=== PATIENT | female | born 1975 | race Two or more races ===

== ENCOUNTER 2018-03-04 23:59 | Emergency (ER) | payer MEDICAID ==
[2018-03-05] MEDS ORDERED: HYDROCODONE/ACETAMINOPHEN 5-325 MG (6 TAB/ER DISP) PO PRN (00:52)
--- NOTE | 2018-03-05 00:53 | ER Document Report ---
ED Neck/Back Problem - General Chief Complaint: Back Pain Stated Complaint: BACK PAIN Time Seen by Provider: 03/05/18 00:23 Mode of Arrival: Ambulatory Information source: Patient Notes: Patient is a 42-year-old morbidly obese female comes in emergency room complaining of low back pain with radiation down both legs. Patient originally states that it started hurting about 2 days ago and started going down the right leg that stopped today and is gone down the left leg. She denies any known trauma no real history of severe back problems and no history of sciatica in the past. She only claims a past medical history pertinent for hypertension she does not smoke and her last period was February 08. She is currently on no medications. Again she denies any falls. She has not lost any urine or stool. And she has no other complaints. TRAVEL OUTSIDE OF THE [place] IN LAST 30 DAYS: No - HPI Patient complains to provider of: Pain, Lower back. No: Injury Onset: This morning Where: Home Onset: Gradual Timing: Constant, Worse, Location changes Quality of pain: Cramping, Sharp Severity: Moderate Pain Level: 3 Recent injury: No Associated symptoms: Radiation to leg, Lower back pain Exacerbated by: Movement of trunk, Sitting position Relieved by: Remaining still Similar symptoms previously: Yes Recently seen / treated by doctor: No Past Medical History - Social History Smoking Status: Unknown if Ever Smoked Lives with: Family Family History: Reviewed & Not Pertinent Patient has suicidal ideation: No Patient has homicidal ideation: No Renal/ Medical History: Denies: Hx Peritoneal Dialysis Review of Systems - Review of Systems Constitutional: No symptoms reported EENT: No symptoms reported Cardiovascular: No symptoms reported Respiratory: No symptoms reported Gastrointestinal: No symptoms reported Genitourinary: No symptoms reported Female Genitourinary: No symptoms reported Musculoskeletal: Back pain, Muscle pain Skin: No symptoms reported Hematologic/Lymphatic: No symptoms reported Neurological/Psychological: No symptoms reported Physical Exam - Vital signs Vitals: Temp Pulse Resp BP Pulse Ox 98.1 F 98 18 179/100 H 96 03/05/18 00:04 03/05/18 00:04 03/05/18 00:04 03/05/18 00:04 03/05/18 00:04 Interpretation: Hypertensive - Notes Notes: Patient is a 42-year-old female who is morbidly obese comes emergency room in no apparent distress but moderate amount of discomfort. - General General appearance: Alert In distress: None - HEENT Head: Normocephalic, Atraumatic Eyes: Normal - Respiratory Respiratory status: No respiratory distress Chest status: Nontender Breath sounds: Normal. No: Productive cough, Rales, Rhonchi, Stridor, Wheezing - Cardiovascular Rhythm: Regular Heart sounds: Normal auscultation Murmur: No - Abdominal Inspection: Normal Distension: No distension Bowel sounds: Normal Tenderness: Nontender Organomegaly: No organomegaly - Back Back: Tender, Vertebra tenderness, Other - Examination of patient's back shows some mildly reproducible tenderness to palpation around L3-L4. She has normal sensation in the general area and two-point discrimination. She has increased discomfort with flexion. As well she has decreased rotation mostly to the right. Patient has normal DTRs bilaterally. She has good vascular exam bilaterally as well. Patient straight leg raises are positive on the left and negative on the right positive meaning about 20 degrees before pain felt on the left and about 5 degrees on the right degrees for her size is good. She displays no sign of saddle paresthesia.. No: Deformity/step-off, CVA tenderness - Extremities General upper extremity: Normal inspection, Nontender, Normal ROM, Normal strength General lower extremity: Normal inspection, Nontender, Normal color, Normal ROM , Normal strength, Normal temperature, Normal weight bearing, Other - All normal with the exception of the positive straight leg raise on the left 27 degrees.. No: Tender, Edema, Robyn's sign - Neurological Neuro grossly intact: Yes Cognition: Normal Orientation: AAOx4 Kyle Coma Scale Eye Opening: Spontaneous Kyle Coma Scale Verbal: Oriented [place] Coma Scale Motor: Obeys Commands Kyle Coma Scale Total: 15 Speech: Normal Course - Re-evaluation Re-evalutation: 03/05/18 02:18 I had a long discussion with patient since she has had no fall recently has no sign of any type of paresthesia on one side or the other and since this kind of shifts back and forth from right to left I figured we would try treating the sciatic "piriformis syndrome. And I have given her the name of the orthopedic doctor air conditioning unit tester and told her to also return to ER if she has any signs of any problems such as loss of urine or stool loss of feeling on one side or the other or any concerns to return here for recheck. - Vital Signs Vital signs: Temp Pulse Resp BP Pulse Ox 98.1 F 88 16 145/98 H 98 03/05/18 01:00 03/05/18 01:00 03/05/18 01:00 03/05/18 01:00 03/05/18 01:00 Discharge - Discharge Clinical Impression: Piriformis syndrome of both sides Sciatica Qualifiers: Laterality: bilateral Qualified Code(s): M54.31 - Sciatica, right side Condition: Stable Disposition: HOME, SELF-CARE Instructions: Ice Packs ([facility]), Low Back Pain ([facility]), Muscle Strain ([facility]), Oral Narcotic Medication ([facility]), Sciatica ([facility]), Warm Packs ([facility]) Additional Instructions: Home and rest. Medications prescribed. As we discussed with no history of any falls x-rays not going to do me a lot of good at this time. I highly suggest that if the medication does not work in the next 3-4 days that you follow-up with your primary care for possible referral to orthopedist or I will give you our orthopedic group air conditioning unit tester you may contact her office to see if they can accommodate you. Should you have any signs or symptoms of stool loss or urine loss or dragging of the foot or any concerns other than we discussed tonight come back to ER for reevaluation. Prescriptions: Cyclobenzaprine HCl [Flexeril 10 mg Tablet] 10 mg PO TIDP PRN #21 tablet PRN Reason: Prednisone 10 mg PO ASDIR PRN 6 Days #1 tab.ds.pk PRN Reason: Forms: Elevated Blood Pressure Referrals: NOMAN QUINONEZ MD [ACTIVE STAFF] - Follow up as needed
[2018-03-05 01:10] VITALS: BP 145/98
== END 2018-03-05 01:07 | disposition home or self-care (01) ==
LOC: ER 23:59
DX: M54.31 Sciatica, right side (principal); M54.32 Sciatica, left side; E66.01 Morbid (severe) obesity due to excess calories
CPT/HCPCS: 99283

== ENCOUNTER 2018-07-06 12:31 | Emergency (ER) | payer MEDICAID, OTHER ==
--- NOTE | 2018-07-06 14:41 | ER Document Report ---
ED Medical Screen (RME) - General Chief Complaint: High Blood Pressure Stated Complaint: WEAKNESS, DIZZINESS,HEADACHE Time Seen by Provider: 07/06/18 14:29 Notes: 43-year-old female with past medical history of hypertension and mitral valve prolapse presents to the emergency department sent over from an urgent care for a work physical today for elevated blood pressure with some symptoms. Patient states she was having headache, visual changes, lightheadedness like she was going to pass out and numbness and tingling in her left arm. Vital signs at the urgent care were 182/119 and 191/125. Upon arrival here her repeat blood pressure was 181/92. She is currently complaining of mild blurred vision left eye, intermittent numbness tingling left arm. Denies chest pain or diaphoresis. His abdominal pain. I have greeted and performed a rapid initial assessment of this patient. A comprehensive ED assessment and evaluation of the patient, analysis of test results and completion of medical decision making process will be conducted by an additional ED providers. TRAVEL OUTSIDE OF THE [place] IN LAST 30 DAYS: No - Related Data Allergies/Adverse Reactions: aspirin Allergy (Verified 07/06/18 12:36) Past Medical History - Social History Chew tobacco use (# tins/day): No Frequency of alcohol use: Occasional Drug Abuse: None - Past Medical History Cardiac Medical History: Reports: Hx Hypertension Endocrine Medical History: Reports: Hx Diabetes Mellitus Type 2 Renal/ Medical History: Denies: Hx Peritoneal Dialysis Past Surgical History: Reports: Hx Tubal Ligation Physical Exam - Vital signs Vitals: Temp Pulse Resp BP Pulse Ox 98.9 F 78 16 181/92 H 98 07/06/18 12:42 07/06/18 12:42 07/06/18 12:42 07/06/18 12:42 07/06/18 12:42 - Respiratory Respiratory status: No respiratory distress Chest status: Nontender Breath sounds: Normal - Cardiovascular Rhythm: Regular Heart sounds: Normal auscultation, S1 appreciated, S2 appreciated Murmur: Yes Systolic murmur grade 1-6: 2 Friction rub: No Ronen's crunch: No Course - Vital Signs Vital signs: Temp Pulse Resp BP Pulse Ox 98.9 F 78 16 181/92 H 98 07/06/18 12:42 07/06/18 12:42 07/06/18 12:42 07/06/18 12:42 07/06/18 12:42
[2018-07-06 15:57] LABS: ABSOLUTE BASOPHILS # (AUTO) 0.1 10^3/uL (0.0-0.2); ABSOLUTE EOSINOPHILS # (AUTO) 0.1 10^3/uL (0.0-0.6); ABSOLUTE LYMPHOCYTES (AUTO) 2.5 10^3/uL (0.5-4.7); ABSOLUTE MONOCYTES (AUTO) 0.6 10^3/uL (0.1-1.4); ABSOLUTE NEUT (AUTO) 6.7 10^3/uL (1.7-8.2); BASOPHILS % (AUTO) 0.6 % (0-2); EOSINOPHILS % (AUTO) 1.4 % (0-6); HEMATOCRIT 38.5 % (36.0-47.0); HEMOGLOBIN 12.6 g/dL (12.0-15.5); LYMPHOCYTES % (AUTO) 25.2 % (13-45); MEAN CORPUSCULAR HGB CONC 32.7 g/dL (32.0-36.0); MEAN CORPUSCULAR VOLUME 76 fl (80-97); MONOCYTES % (AUTO) 5.8 % (3-13); PLATELET COUNT 327 10^3/uL (150-450); RED BLOOD COUNT 5.04 10^6/uL (3.72-5.28); RED CELL DISTRIBUTION WIDTH 17.3 % (11.5-14.0); TOTAL CELLS COUNTED % (AUTO) 100 %
[2018-07-06 16:08] LABS: ALANINE AMINOTRANSFERASE 32 U/L (9-52); ALBUMIN 4.2 g/dL (3.5-5.0); ALKALINE PHOSPHATASE 135 U/L (38-126); ANION GAP 11 (5-19); ASPARTATE AMINO TRANSFERASE 26 U/L (14-36); BILIRUBIN,DIRECT 0.3 mg/dL (0.0-0.4); BILIRUBIN,TOTAL 0.8 mg/dL (0.2-1.3); BLOOD UREA NITROGEN 11 mg/dL (7-20); CALCIUM 9.3 mg/dL (8.4-10.2); CARBON DIOXIDE 25 mmol/L (22-30); CHLORIDE 106 mmol/L (98-107); GLUCOSE 83 mg/dL (75-110); POTASSIUM 4.1 mmol/L (3.6-5.0); SODIUM 141.9 mmol/L (137-145)
--- NOTE | 2018-07-06 21:37 | RADIOLOGY REPORT (SQ) ---
EXAM DESCRIPTION: CT HEAD WITHOUT IV CONTRAST COMPLETED DATE/TME: 07/06/2018 20:36 CLINICAL HISTORY: 43 years, Female, htn, headache, left numbness COMPARISON: None. TECHNIQUE: Contiguous axial images of the brain were obtained without the administration of intravenous contrast. Images stored on PACS. All CT scanners at this facility use dose modulation, iterative reconstruction, and/or weight based dosing when appropriate to reduce radiation dose to as low as reasonably achievable (ALARA). [facility]: Dose Right [facility]: CareDose [facility]: Dose Right [facility]: Teradose 4D [facility]: Kid Care Years LIMITATIONS: None. Findings: Brain: No acute intracranial hemorrhage. No territorial infarct. No mass effect. Ventricles: Within normal limits in size. Bones: No acute osseous finding. Paranasal sinuses: Well aerated. Mastoid air cells: Well aerated. Soft tissues: Within normal limits. IMPRESSION: No acute intracranial finding. TECHNICAL DOCUMENTATION: Quality ID # [id number]: Final reports with documentation of one or more dose reduction techniques (e.g., Automated exposure control, adjustment of the mA and/or kV according to patient size, use of iterative reconstruction technique) copyright 2010 [employer]- All Rights Reserved
--- NOTE | 2018-07-06 22:47 | ER Document Report ---
ED General - General Chief Complaint: High Blood Pressure Stated Complaint: WEAKNESS, DIZZINESS,HEADACHE Time Seen by Provider: 07/06/18 14:29 Notes: Patient is a 43-year-old female with a past medical history of obesity and essential hypertension who presents from an urgent care with concerns of elevated blood pressure as well as a multitude of additional complaints. On my assessment, the patient denies any symptoms of any kind. In triage the patient was apparently complaining of blurring of vision more towards her left eye as well as intermittent paresthesias or throbbing of her left upper extremity. She also notes chronic daily headaches although denies a current headache. Headaches when present are described as a global, throbbing, aching pain. Nothing is noted to improve or worsen these headaches. These have been going on for at least 4-5 months and are not new or different today. Patient states that when she tried to look at the eye chart at the urgent care she felt like she could barely see out of her left eye although notes that this has since resolved. She notes that she has a known history of essential hypertension but could not for the medications and therefore has been off of them for quite some time. She denies any focal weakness or loss of sensation. No fever or constitutional symptoms. No head trauma. TRAVEL OUTSIDE OF THE [place] IN LAST 30 DAYS: No - Related Data Allergies/Adverse Reactions: aspirin Allergy (Verified 07/06/18 12:36) Past Medical History - General Information source: Patient - Social History Smoking Status: Never Smoker Chew tobacco use (# tins/day): No Frequency of alcohol use: Occasional Drug Abuse: None Lives with: Family Family History: Reviewed & Not Pertinent Patient has suicidal ideation: No Patient has homicidal ideation: No - Past Medical History Cardiac Medical History: Reports: Hx Hypertension Endocrine Medical History: Reports: Hx Diabetes Mellitus Type 2 Renal/ Medical History: Denies: Hx Peritoneal Dialysis Past Surgical History: Reports: Hx Tubal Ligation Review of Systems - Review of Systems Notes: Constitutional: Negative for fever. HENT: Negative for sore throat. Eyes: Positive for visual changes. Cardiovascular: Negative for chest pain. Respiratory: Negative for shortness of breath. Gastrointestinal: Negative for abdominal pain, vomiting or diarrhea. Genitourinary: Negative for dysuria. Musculoskeletal: Negative for back pain. Skin: Negative for rash. Neurological: Positive for headaches and paresthesias of the left upper extremity and left lower extremity 10 point ROS negative except as marked above and in HPI. Physical Exam - Vital signs Vitals: Temp Pulse Resp BP Pulse Ox 98.9 F 78 16 181/92 H 98 07/06/18 12:42 07/06/18 12:42 07/06/18 12:42 07/06/18 12:42 07/06/18 12:42 Interpretation: Hypertensive Notes: PHYSICAL EXAMINATION: GENERAL: Well-appearing, well-nourished and in no acute distress. HEAD: Atraumatic, normocephalic. EYES: Pupils equal round and reactive to light, extraocular movements intact, sclera anicteric, conjunctiva are normal. ENT: nares patent, oropharynx clear without exudates. Moist mucous membranes. NECK: Normal range of motion, supple without lymphadenopathy LUNGS: Breath sounds clear to auscultation bilaterally and equal. No wheezes rales or rhonchi. HEART: Regular rate and rhythm without murmurs ABDOMEN: Soft, nontender, normoactive bowel sounds. No guarding, no rebound. No masses appreciated. EXTREMITIES: Normal range of motion, no pitting or edema. No cyanosis. NEUROLOGICAL: Face symmetric. Tongue protrudes midline. Extraocular motions intact. Pupils are 2 mm and equally reactive. Normal speech, normal gait. 5 out of 5 strength in both the distal and proximal upper and lower extremities b ilaterally. Sensation is grossly intact throughout. Finger to nose testing normal. Pronator drift normal. PSYCH: Normal mood, normal affect. SKIN: Warm, Dry, normal turgor, no rashes or lesions noted. Course - Re-evaluation Re-evalutation: 07/06/18 22:46 Patient presents complaining of essential hypertension. Was referred from an urgent care. The patient has a known history of essential hypertension but states that she has been off medications for quite some time due to lack of access to care. In triage the patient had a multitude of additional complaints including headache, blurring of vision, left upper extremity paresthesias. At time of my evaluation she denies these complaints stating that these were overblown. She notes that she has had some intermittent blurring of vision and has chronic headaches which are not new or different today. In regards to the paresthesias of her left upper extremity she states these are not actual paresthesias or numbness but rather a spasming of the left upper extremity that comes and goes and has been doing so for quite some time. Labs unremarkable. Patient denies chest pain or shortness of breath. EKG unremarkable. CT of the head obtained prior to my assessment it does reveal no acute findings. Patient has been started on hydrochlorothiazide 25 mg daily. I have advised dietary changes, weight loss. At this time will discharge with return precautions and follow-up recommendations. Verbal discharge instructions given a the bedside and opportunity for questions given. Medication warnings reviewed. Patient is in agreement with this plan and has verbalized understanding of return precautions and the need for primary care follow-up in the next 24-72 hours. - Vital Signs Vital signs: Temp Pulse Resp BP Pulse Ox 98.9 F 78 17 193/110 H 99 07/06/18 12:42 07/06/18 12:42 07/06/18 23:53 07/06/18 23:53 07/06/18 23:52 - Laboratory Result Diagrams: 07/06/18 15:39 07/06/18 15:39 Laboratory results interpreted by me: 07/06/18 07/06/18 15:39 15:39 MCV 76 L MCH 25.0 L RDW 17.3 H Alkaline Phosphatase 135 H - Diagnostic Test Radiology reviewed: Image reviewed, Reports reviewed Radiology results interpreted by me: 07/06/18 22:46 CT head: No acute intracranial bleed or mass - EKG Interpretation by Me Additional EKG results interpreted by me: 07/06/18 22:47 Sinus rhythm, rate 79. No ST elevations or depressions. QTC is 441. Discharge - Discharge Clinical Impression: Essential hypertension, Blurred vision Headache Qualifiers: Headache type: unspecified Headache chronicity pattern: acute headache Intractability: not intractable Qualified Code(s): R51 - Headache Condition: Good Disposition: HOME, SELF-CARE Additional Instructions: You were seen today for blood pressure that was high. This is a long-term risk factor for multiple medical problems including heart attack and stroke. However, the blood pressure in of itself will not cause you to have an acute stroke or heart attack over the course of just several days or weeks. You need to have a gradual reduction of your blood pressure back to normal levels over the next several months in conjunction with your primary care physician. Return if you develop headache, weakness, numbness, chest pain, pass out, or have any other symptoms that are concerning to you. Prescriptions: Hydrochlorothiazide [Hydrodiuril 25 mg Tablet] 25 mg PO QAM #30 tablet
[2018-07-06] MEDS ORDERED: HYDROCHLOROTHIAZIDE 25 MG TABLET PO ONE (23:45)
[2018-07-06 23:54] VITALS: BP 193/110
--- NOTE | 2018-07-07 20:17 | EKG REPORT ---
SEVERITY:- ABNORMAL ECG - SINUS RHYTHM CONSIDER LEFT VENTRICULAR HYPERTROPHY : Confirmed by: Natacha Kay 07-Jul-2018 20:16:09
== END 2018-07-06 23:59 | disposition home or self-care (01) ==
LOC: ER 12:31
DX: I10 Essential (primary) hypertension (principal); H53.8 Other visual disturbances; R51 Headache; R25.2 Cramp and spasm; E11.9 Type 2 diabetes mellitus without complications; Z88.6 Allergy status to analgesic agent
CPT/HCPCS: 36415; 70450; 80053; 85025; 93005; 93010; 99284

== ENCOUNTER 2018-07-09 15:07 | Emergency (ER) | payer SELFPAY ==
[2018-07-09] MEDS ORDERED: CLONIDINE HCL 0.1 MG TABLET PO ONE (16:57)
[2018-07-09] MEDS ORDERED: NORMAL SALINE 1000 ML 1,000 ML IV ONE (16:59)
--- NOTE | 2018-07-09 17:00 | ER Document Report ---
ED Medical Screen (RME) - General Chief Complaint: High Blood Pressure Stated Complaint: BLOOD PRESSURE ISSUES Time Seen by Provider: 07/09/18 16:34 Mode of Arrival: Ambulatory Information source: Patient Notes: 43-year-old female presents emergency department with complaints of hypertension. Patient states that she was seen here on Monday for similar. Patient states that she went to urgent care to try to get her physical completed and was sent to the emergency department because her blood pressure is elevated. Patient states that she was started on hydrochlorothiazide on Monday. She filled the medication and is been taking it as directed. She continues to feel lightheaded, have blurred vision, L arm numbness, tingling, intermittent chest pain and is nauseated. Patient states that the symptoms have been present intermittently for a while. She denies any current chest pain, shortness of breath, abdominal pain, dysuria, hematuria, increased urgency, increased frequency. Patient is tachycardic and hypertensive in the ED. I have greeted and performed a rapid initial assessment of this patient. A comprehensive ED assessment and evaluation of the patient, analysis of test r esults and completion of the medical decision making process will be conducted by additional ED providers. PHYSICAL EXAMINATION: GENERAL: Well-appearing, well-nourished and in no acute distress. HEAD: Atraumatic, normocephalic. EYES: Pupils equal round extraocular movements intact, conjunctiva are normal. ENT: Nares patent NECK: Normal range of motion LUNGS: No respiratory distress Musculoskeletal: Normal range of motion NEUROLOGICAL: Normal speech, normal gait. TRAVEL OUTSIDE OF THE [place] IN LAST 30 DAYS: No - Related Data Allergies/Adverse Reactions: aspirin Allergy (Verified 07/06/18 12:36) Past Medical History - Social History Chew tobacco use (# tins/day): No Frequency of alcohol use: None Drug Abuse: None - Past Medical History Cardiac Medical History: Reports: Hx Hypertension Endocrine Medical History: Reports: Hx Diabetes Mellitus Type 2 Renal/ Medical History: Denies: Hx Peritoneal Dialysis Past Surgical History: Reports: Hx Gynecologic Surgery - D&C, Hx Tubal Ligation Physical Exam - Vital signs Vitals: Temp Pulse Resp BP Pulse Ox 98.1 F 135 H 15 171/94 H 100 07/09/18 15:21 07/09/18 15:21 07/09/18 15:21 07/09/18 15:21 07/09/18 15:21 Course - Vital Signs Vital signs: Temp Pulse Resp BP Pulse Ox 98.1 F 98 18 169/105 H 100 07/09/18 15:21 07/09/18 16:40 07/09/18 16:40 07/09/18 16:40 07/09/18 16:40
[2018-07-09 17:32] LABS: APPEARANCE,URINE CLOUDY; BILIRUBIN,URINE NEGATIVE (NEGATIVE); COLOR,URINE YELLOW; GLUCOSE, URINE >=500 mg/dL (NEGATIVE); KETONES,URINE NEGATIVE (NEGATIVE); LEUKOCYTE ESTERASE,URINE LARGE (NEGATIVE); NITRITE,URINE NEGATIVE (NEGATIVE); PROTEIN,URINE NEGATIVE (NEGATIVE); URINE SPECIFIC GRAVITY 1.021
--- NOTE | 2018-07-09 17:37 | RADIOLOGY REPORT (SQ) ---
EXAM DESCRIPTION: CHEST SINGLE VIEW COMPLETED DATE/TIME: 07/09/2018 5:19 pm REASON FOR STUDY: lightheaded COMPARISON: None. EXAM PARAMETERS: NUMBER OF VIEWS: One view. TECHNIQUE: Single frontal radiographic view of the chest acquired. RADIATION DOSE: NA LIMITATIONS: None. FINDINGS: LUNGS AND PLEURA: No opacities, masses or pneumothorax. No pleural effusion. MEDIASTINUM AND HILAR STRUCTURES: No masses. Contour normal. HEART AND VASCULAR STRUCTURES: Heart normal in size. Normal vasculature. BONES: No acute findings. HARDWARE: None in the chest. OTHER: No other significant finding. IMPRESSION: NO ACUTE RADIOGRAPHIC FINDING IN THE CHEST. TECHNICAL DOCUMENTATION: JOB ID: [id number] [email or web address]- All Rights Reserved Reading location - IP/workstation name: [email or web address]
[2018-07-09 18:11] LABS: ABSOLUTE EOSINOPHILS # (AUTO) 0.2 10^3/uL (0.0-0.6); ABSOLUTE LYMPHOCYTES (AUTO) 3.1 10^3/uL (0.5-4.7); ABSOLUTE NEUT (AUTO) 5.8 10^3/uL (1.7-8.2); BASOPHILS % (AUTO) 0.4 % (0-2); EOSINOPHILS % (AUTO) 1.6 % (0-6); HEMATOCRIT 38.5 % (36.0-47.0); HEMOGLOBIN 12.7 g/dL (12.0-15.5); LYMPHOCYTES % (AUTO) 30.6 % (13-45); MEAN CORPUSCULAR HEMOGLOBIN 24.7 pg (27.0-33.4); MEAN CORPUSCULAR HGB CONC 32.9 g/dL (32.0-36.0); MEAN CORPUSCULAR VOLUME 75 fl (80-97); MONOCYTES % (AUTO) 9.5 % (3-13); PLATELET COUNT 343 10^3/uL (150-450); RED BLOOD COUNT 5.12 10^6/uL (3.72-5.28); RED CELL DISTRIBUTION WIDTH 16.8 % (11.5-14.0); SEGMENTED NEUTROPHILS % (AUTO) 57.9 % (42-78); TOTAL CELLS COUNTED % (AUTO) 100 %
[2018-07-09 18:28] LABS: ALANINE AMINOTRANSFERASE 28 U/L (9-52); ALBUMIN 4.3 g/dL (3.5-5.0); ALKALINE PHOSPHATASE 132 U/L (38-126); ANION GAP 11 (5-19); ASPARTATE AMINO TRANSFERASE 19 U/L (14-36); BILIRUBIN,DIRECT 0.2 mg/dL (0.0-0.4); BILIRUBIN,TOTAL 0.4 mg/dL (0.2-1.3); BLOOD UREA NITROGEN 10 mg/dL (7-20); CALCIUM 9.5 mg/dL (8.4-10.2); CARBON DIOXIDE 31 mmol/L (22-30); CHLORIDE 99 mmol/L (98-107); GLUCOSE 71 mg/dL (75-110); POTASSIUM 3.8 mmol/L (3.6-5.0); TOTAL PROTEIN 7.9 g/dL (6.3-8.2)
[2018-07-09] MEDS ORDERED: LOSARTAN POTASSIUM 50 MG TABLET PO ONE (18:32)
[2018-07-09 19:11] VITALS: BP 134/85
--- NOTE | 2018-07-09 19:13 | ER Document Report ---
ED General - General Chief Complaint: High Blood Pressure Stated Complaint: BLOOD PRESSURE ISSUES Time Seen by Provider: 07/09/18 16:34 Primary Care Provider: NELDA [facility] [Provider Group] - Follow up in 3-5 days [facility] [Provider Group] - Follow up in 3-5 days Mode of Arrival: Ambulatory Notes: Patient is a 43-year-old female with history of hypertension that presents to the emergency department for chief complaint of headache, and lightheadedness. Patient was seen on Monday at urgent care, was noted to have high blood pressure had similar symptoms of headache and lightheadedness, was placed on hydrochlorothiazide, she is been feeling more lightheaded and had some nausea associated since being started on that medication and she feels that her blood pressure was not much improved so she decided come back to the emergency department today. She is been on blood pressure medication in the past, but she recently moved here from [place] and has not been able to establish any care with physicians, is not currently taking any medications. She denies history of kidney disease, heart disease, or history of any strokes. She denies any numbness, tingling or weakness in any extremity. Denies having any chest pain, shortness of breath or difficulty breathing at this time. Past Medical History: Hypertension, mitral valve prolapse Past Surgical History: Tubal ligation Social History: Denies tobacco use, admits to occasional alcohol use. Family History: Reviewed and noncontributory for presenting illness Allergies: Reviewed, see documented allergy list. REVIEW OF SYSTEMS: Other than noted above, the 12 point review of systems was reviewed with the page belle and were negative, all pertinent findings are included in the HPI. PHYSICAL EXAMINATION: Vital signs reviewed, nursing noted reviewed. GENERAL: Well-appearing, well-nourished and in no acute distress. HEAD: Atraumatic, normocephalic. EYES: Eyes appear normal, extraocular movements intact, sclera anicteric, conjunctiva are normal. PERRLA ENT: nares patent, oropharynx clear without exudates. Moist mucous membranes. NECK: Normal range of motion, supple without lymphadenopathy LUNGS: Breath sounds clear to auscultation bilaterally and equal. No wheezes rales or rhonchi. HEART: Regular rate and rhythm without murmurs ABDOMEN: Soft, nontender, normoactive bowel sounds. No rebound, guarding, or rigidity. No masses appreciated. EXTREMITIES: Nontender, good range of motion, no pitting or edema. NEUROLOGICAL: No focal neurological deficits. Moves all extremities spontaneou sly Motor and sensory grossly intact on exam. PSYCH: Normal mood, normal affect. SKIN: Warm, Dry, normal turgor, no rashes or lesions noted on exposed skin TRAVEL OUTSIDE OF THE [place] IN LAST 30 DAYS: No - Related Data Allergies/Adverse Reactions: aspirin Allergy (Verified 07/06/18 12:36) Past Medical History - General Information source: Patient - Social History Smoking Status: Never Smoker Chew tobacco use (# tins/day): No Frequency of alcohol use: None Drug Abuse: None Family History: Reviewed & Not Pertinent Patient has suicidal ideation: No Patient has homicidal ideation: No - Past Medical History Cardiac Medical History: Reports: Hx Hypertension Endocrine Medical History: Reports: Hx Diabetes Mellitus Type 2 Renal/ Medical History: Denies: Hx Peritoneal Dialysis Past Surgical History: Reports: Hx Gynecologic Surgery - D&C, Hx Tubal Ligation Physical Exam - Vital signs Vitals: Temp Pulse Resp BP Pulse Ox 98.1 F 135 H 15 171/94 H 100 07/09/18 15:21 07/09/18 15:21 07/09/18 15:21 07/09/18 15:21 07/09/18 15:21 Course - Re-evaluation Re-evalutation: Patient seen and examined vital signs reviewed. Laboratory data and imaging were ordered as appropriate for the patient's prese nting symptoms and complaint, with consideration of any critical or life threatening conditions that may be associated with their obtained history and exam as noted above. Patient was treated with IV fluids and clonidine in triage, her heart rate initially was tachycardic, on my exam was normal Results were reviewed when available and demonstrated unremarkable blood work, and urinalysis had leukocyte esterase, patient has not been having symptoms of UTI, will send for culture. Patient's blood pressure still elevated, at this point I will start her on losartan 50 mg daily, she had been on an DENA inhibitor in the past but had a dry cough associated, and she thinks that that medication was helping her blood pressure well when she was on it. She was noted to have glucose in her urine, but her blood glucose was 71 today The patient was re-evaluated and was stable Evaluation was most consistent with uncontrolled hypertension, will discharge the patient home on a prescription of losartan 50 mg daily, asked her to discontinue the hydrochlorothiazide previously prescribed. Results were discussed with the patient at this point, after careful consideration I feel that that patient can be discharged from the emergency department, the patient was educated treatments and reasons to return to the emergency department based on their presumed diagnosis as noted above, they were advised to followup with a primary care physician in 2-3 days. Patient was agreeable to plan of care. *Note is created using voice recognition software and may contain spelling, syntax or grammatical errors. Laboratory 07/09/18 07/09/18 07/09/18 16:45 17:55 17:55 WBC 10.0 RBC 5.12 Hgb 12.7 Hct 38.5 MCV 75 L MCH 24.7 L MCHC 32.9 RDW 16.8 H Plt Count 343 Seg Neutrophils % 57.9 Lymphocytes % 30.6 Monocytes % 9.5 Eosinophils % 1.6 Basophils % 0.4 Absolute Neutrophils 5.8 Absolute Lymphocytes 3.1 Absolute Monocytes 1.0 Absolute Eosinophils 0.2 Absolute Basophils 0.0 Sodium 141.0 Potassium 3.8 Chloride 99 Carbon Dioxide 31 H Anion Gap 11 BUN 10 Creatinine 0.66 Est GFR ( Amer) > 60 Est GFR (Non-Af Amer) > 60 Glucose 71 L Calcium 9.5 Total Bilirubin 0.4 Direct Bilirubin 0.2 Neonat Total Bilirubin Not Reportable Neonat Direct Bilirubin Not Reportable Neonat Indirect Bili Not Reportable AST 19 ALT 28 Alkaline Phosphatase 132 H Troponin I Total Protein 7.9 Albumin 4.3 Urine Color YELLOW Urine Appearance CLOUDY Urine pH 6.0 Ur Specific [place] 1.021 Urine Protein NEGATIVE Urine Glucose (UA) >=500 H Urine Ketones NEGATIVE Urine Blood SMALL H Urine Nitrite NEGATIVE Urine Bilirubin NEGATIVE Urine Urobilinogen 4.0 H Ur Leukocyte Esterase LARGE H Urine WBC (Auto) 4 Urine RBC (Auto) 6 Squamous Epi Cells Auto 20 Urine Mucus (Auto) OCC Urine Ascorbic Acid NEGATIVE Urine HCG, Qual NEGATIVE 07/09/18 17:55 WBC RBC Hgb Hct MCV MCH MCHC RDW Plt Count Seg Neutrophils % Lymphocytes % Monocytes % Eosinophils % Basophils % Absolute Neutrophils Absolute Lymphocytes Absolute Monocytes Absolute Eosinophils Absolute Basophils Sodium Potassium Chloride Carbon Dioxide Anion Gap BUN Creatinine Est GFR ( Amer) Est GFR (Non-Af Amer) Glucose Calcium Total Bilirubin Direct Bilirubin Neonat Total Bilirubin Neonat Direct Bilirubin Neonat Indirect Bili AST ALT Alkaline Phosphatase Troponin I < 0.012 Total Protein Albumin Urine Color Urine Appearance Urine pH Ur Specific [place] Urine Protein Urine Glucose (UA) Urine Ketones Urine Blood Urine Nitrite Urine Bilirubin Urine Urobilinogen Ur Leukocyte Esterase Urine WBC (Auto) Urine RBC (Auto) Squamous Epi Cells Auto Urine Mucus (Auto) Urine Ascorbic Acid Urine HCG, Qual - Vital Signs Vital signs: Temp Pulse Resp BP Pulse Ox 98.1 F 98 20 134/85 H 99 07/09/18 15:21 07/09/18 16:40 07/09/18 19:01 07/09/18 19:01 07/09/18 19:01 - Laboratory Result Diagrams: 07/09/18 17:55 07/09/18 17:55 Laboratory results interpreted by me: 07/09/18 07/09/18 07/09/18 16:45 17:55 17:55 MCV 75 L MCH 24.7 L RDW 16.8 H Carbon Dioxide 31 H Glucose 71 L Alkaline Phosphatase 132 H Urine Glucose (UA) >=500 H Urine Blood SMALL H Urine Urobilinogen 4.0 H Ur Leukocyte Esterase LARGE H Discharge - Discharge Clinical Impression: Uncontrolled hypertension, Headache Condition: Stable Disposition: HOME, SELF-CARE Instructions: High Blood Pressure, Requiring Treatment ([facility]) Additional Instructions: Please discontinue taking the hydrochlorothiazide as previously prescribed, and start taking the newly prescribed losartan 50 mg daily, you need to follow-up with her primary care physician to have your blood pressure checked and reevaluated as you may need further or additional medications. Do not hesitate to return to the emergency department if you have worsening of your symptoms or develop severe chest pain or difficulty breathing. Prescriptions: RX: Losartan Potassium 50 mg PO DAILY #30 tablet Referrals: [facility] [Provider Group] - Follow up in 3-5 days [facility] [Provider Group] - Follow up in 3-5 days
== END 2018-07-09 19:30 | disposition home or self-care (01) ==
LOC: ER 15:07
DX: I10 Essential (primary) hypertension (principal); R51 Headache; R42 Dizziness and giddiness; Z79.899 Other long term (current) drug therapy; E11.9 Type 2 diabetes mellitus without complications
CPT/HCPCS: 99283; 96360; 36415; 87086; 85025; 81025; 87088; 80053; 81001; 84484; 71045; J7030

== ENCOUNTER 2020-02-27 09:25 | Emergency (ER) | payer SELFPAY ==
--- NOTE | 2020-02-27 10:31 | RADIOLOGY REPORT (SQ) ---
EXAM DESCRIPTION: KNEE RIGHT 4 VIEWS IMAGES COMPLETED DATE/TIME: 02/27/2020 8:58 am REASON FOR STUDY: pain tender to touch. COMPARISON: None. NUMBER OF VIEWS: Four views. TECHNIQUE: AP, lateral, and both oblique radiographic images acquired of the right knee. LIMITATIONS: None. FINDINGS: MINERALIZATION: Normal. BONES: No acute fracture or dislocation. No worrisome bone lesions. JOINT: No effusion. SOFT TISSUES: No soft tissue swelling. No radio-opaque foreign body. OTHER: No other significant finding. IMPRESSION: NEGATIVE STUDY OF THE RIGHT KNEE. NO RADIOGRAPHIC EVIDENCE OF ACUTE INJURY. TECHNICAL DOCUMENTATION: JOB ID: [id number] 2010 [employer]- All Rights Reserved Reading location - IP/workstation name: [id number]
--- NOTE | 2020-02-27 12:28 | ER Document Report ---
Entered by HERON DAVIES SCRIBE 02/27/20 1040 Acting as scribe for:OSMANI ZAYAS MD ED Extremity Problem, Lower - General Chief Complaint: Knee Pain Stated Complaint: RIGHT KNEE PAIN Time Seen by Provider: 02/27/20 10:25 Mode of Arrival: Ambulatory Information source: Patient Notes: This 44 year old female patient presents to the emergency department today with complaints of right medial knee pain for the last month. Patient reports that she has been "trying to walk it out" and she mentions that walking makes the pain significantly worse. 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 Patient mentions that her knee feels better if she holds it in flexion. TRAVEL OUTSIDE OF THE [place] 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 Lives with: Family Family History: Reviewed & Not Pertinent Patient has homicidal ideation: No - Past Medical History Cardiac Medical History: Reports: Hx Hypertension Endocrine Medical History: Reports: Hx Diabetes Mellitus Type 2 Past Surgical History: Reports: Hx Gynecologic Surgery - D&C, Hx Hysterectomy, Hx Tubal Ligation Review of Systems - Review of Systems Constitutional: No symptoms reported EENT: No symptoms reported Cardiovascular: No symptoms reported Respiratory: No symptoms reported Gastrointestinal: No symptoms reported Genitourinary: No symptoms reported Female Genitourinary: No symptoms reported Musculoskeletal: See HPI, Joint pain - right knee Skin: No symptoms reported Hematologic/Lymphatic: No symptoms reported Neurological/Psychological: No symptoms reported -: Yes All other systems reviewed and negative Physical Exam - Notes Notes: Physical Exam: General: Alert, appears well. HEENT: Normocephalic. Atraumatic. PERRLA. Extraocular movements intact. Oropharynx clear. Neck: Supple. Respiratory: No respiratory distress. Heart: Regular rate and rhythm, faint click murmur heard. Consistent with the patient's history of mitral valve prolapse. Abdominal: Normal Inspection. No distension. Extremities: Right medial knee tenderness to palpation over the MCL. Pain is relieved with knee flexion and increased with knee extension, there is exquisite medial pain with medial joint is stress. 1+ right sided pre-tibial edema. Neurological: Normal cognition. AAOx4. Normal speech. Psychological: Normal affect. Normal Mood. Skin: Warm. Dry. Normal color. Discharge - Discharge Clinical Impression: Sprain of medial collateral ligament of knee Qualifiers: Encounter type: initial encounter Laterality: right Qualified Code(s): S83.411A - Sprain of medial collateral ligament of right knee, initial encounter Condition: Stable Disposition: HOME, SELF-CARE Additional Instructions: Sprained Knee Medial Collateral Ligament: Your sprained knee results from a stretching of the medial collateral ligament. This often results from a bending stress. The usual treatment is splinting of the knee, ice packs, and elevation. You shouldn't walk on the leg if weightbearing is painful. Unless the sprain is obviously a minor one, follow-up exam is very important. The degree of ligament damage often cannot be fully assessed at first due to muscle spasm and pain. Your treatment plan may change based on the physician's findings during your follow-up examination. Call the doctor at once if there is severe swelling, increasing pain, numbness, or other alarming symptoms. Your injury seems to be a strain or sprain of the medial collateral ligament in your left knee. When you bend the knee it takes tension and stress off of the ligament and that is why it feels better. When you try to walk through it, you actually continue to irritate and cause additional injury to the ligament. Use the knee immobilizer to stabilize the knee and prevent it from bending when you are walking. Elevate the knee and use ice packs off and on. Take ibuprofen 600 mg every 8 hours to reduce inflammation and pain. Follow-up with a local medical doctor or orthopedic surgeon if your knee does not improve after 1 to 2 weeks of protecting the ligament. RETURN TO THE EMERGENCY ROOM IF ANY NEW OR WORSENING SYMPTOMS. Forms: Return to Work I personally performed the services described in the documentation, reviewed and edited the documentation which was dictated to the scribe in my presence, and it accurately records my words and actions.
== END 2020-02-27 11:22 | disposition home or self-care (01) ==
LOC: ER 09:25
DX: S83.411A Sprain of medial collateral ligament of right knee, initial encounter (principal); X58.XXXA Exposure to other specified factors, initial encounter; M25.561 Pain in right knee; I10 Essential (primary) hypertension; E11.9 Type 2 diabetes mellitus without complications; R01.1 Cardiac murmur, unspecified; Z88.8 Allergy status to other drugs, medicaments and biological substances
CPT/HCPCS: 99283